=== PATIENT | male | born 2000 | race Two or more races ===

== ENCOUNTER 2020-03-02 23:43 | Day surgery (SDC) | payer OTHER ==
[~2020-03-02] VITALS: Ht 165.1 cm; Wt 95.2 kg
--- NOTE | 2020-03-03 00:23 | NUR ---
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
[2020-03-03] MEDS ORDERED: SODIUM CHLORIDE 0.9% 1,000ML IVBOLUS ONE (00:30)
[2020-03-03] MEDS ORDERED: ONDANSETRON 2MG/ML, 2ML IVPush ONE (00:30)
[2020-03-03] MEDS ORDERED: ONDANSETRON 2MG/ML, 2ML ONE ×2 (00:38→08:14)
[2020-03-03] MEDS ORDERED: MORPHINE SULFATE 4 MG/ML, 1ML ONE ×4 (00:38→04:21)
[2020-03-03 00:46] LABS: BASOPHILS % (AUTO) 1 % (0-1); EOSINOPHILS % (AUTO) 2 % (1-7); LYMPHOCYTES % (AUTO) 19 % (22-44); MEAN CORPUSCULAR HEMOGLOBIN 28.4 pg (27.5-34.5); MEAN CORPUSCULAR HGB CONC 33.9 g/dL (33.2-36.2); MEAN PLATELET VOLUME 8.4 fL (7.4-10.4); MONOCYTES % (AUTO) 6 % (2-9); NEUTROPHILS % (AUTO) 74 % (42-75); PLATELET COUNT 312 x10^3/uL (130-400); RED BLOOD COUNT 5.77 x10^6/uL (4.38-5.82); RED CELL DISTRIBUTION WIDTH 13.6 % (9.4-14.8)
[2020-03-03 00:51] LABS: ALANINE AMINOTRANSFERASE 78 U/L (12-78); ALBUMIN 4.2 g/dL (3.4-5.0); ANION GAP 5 mmol/L (5-15); CALCIUM 9.5 mg/dL (8.5-10.1); CHLORIDE 109 mmol/L (98-107); CREATININE 1.07 mg/dL (0.7-1.3)
[2020-03-03 00:53] LABS: ALKALINE PHOSPHATASE 116 U/L (45-117); BILIRUBIN,TOTAL 0.4 mg/dL (0.2-1.0)
[2020-03-03] MEDS: MORPHINE SULFATE 4 MG/ML, 1ML IVPush PRN ×2 (00:57→01:09)
--- NOTE | 2020-03-03 00:57 | NUR ---
PIV STARTED PT MEDICATED PER MAR
[2020-03-03 01:19] LABS: MD SCAN
--- NOTE | 2020-03-03 01:24 | NUR ---
pt to ct via stretcher at this time.
[2020-03-03] MEDS ORDERED: DIPHENHYDRAMINE 50 MG/ML, 1ML ONE (01:26)
[2020-03-03] MEDS ORDERED: DIPHENHYDRAMINE 50 MG/ML, 1ML IVPush ONE (01:30)
--- NOTE | 2020-03-03 02:08 | NUR ---
PT MEDICATED FOR PAIN PER DR MARTELL
--- NOTE | 2020-03-03 02:21 | NUR ---
PT INFORMED OF NEED FOR URINE AT THIS TIME STS CAN'T PEE YET
[2020-03-03] MEDS ORDERED: CEFOTETAN PMX 2GM/50ML 50 ML IVPB ONE (02:30)
[2020-03-03] MEDS ORDERED: PIPERACILLIN/TAZO/PMX 3.375GM 50 ML IV ONE (02:30)
[2020-03-03] MEDS ORDERED: morphine SULFATE 10 MG/ML, 1ML IV ONE (02:30)
--- NOTE | 2020-03-03 02:56 | NUR ---
AWAITING CULTURES TO BE DRAWN PRIOR TO ABX PER DR ARREAGA
--- NOTE | 2020-03-03 03:16 | NUR ---
NATE HAYS WALKED TO LAB AT THIS TIME
--- NOTE | 2020-03-03 03:32 | NUR ---
LAB AT BEDSIDE FOR CULTURES AT THIS TIME
--- NOTE | 2020-03-03 03:40 | NUR ---
ABX STARTED AT THIS TIME
[2020-03-03] MEDS ORDERED: OMNIPAQUE 350 MG/ML, 100ML BOTTLE ONE (03:58)
[2020-03-03] MEDS ORDERED: MORPHINE SULFATE 4 MG/ML, 1ML IVPush PRN (04:00)
[2020-03-03] MEDS ORDERED: SODIUM CHLORIDE FLUSH 10ML SYR IVF PRN (04:00)
[2020-03-03] MEDS ORDERED: SODIUM CHLORIDE 0.9% 1,000 ML IV ONE (04:00)
--- NOTE | 2020-03-03 04:29 | NUR ---
PT MEDICATED PER MAR FOR PAIN AT THIS TIME
--- NOTE | 2020-03-03 05:44 | NUR ---
pt resting on gurney friend remains at bedside
[2020-03-03 07:17] VITALS: BP 104/82
--- NOTE | 2020-03-03 07:18 | NUR ---
report from valorie sexton. report to OR nurse. pt last ate 2 pm yest. getting undressed. vss. to OR in 15 min. aware. as
[2020-03-03] MEDS ORDERED: EPINEPHRINE 1 MG/ML, 1ML ONE (07:22)
[2020-03-03] MEDS ORDERED: FENTANYL PF 100 MCG/2ML ONE ×3 (07:22→09:00)
[2020-03-03] MEDS ORDERED: BUPIVACAINE/PF 0.5% ONE (07:22)
[2020-03-03] MEDS ORDERED: MIDAZOLAM 1 MG/ML, 2ML ONE (07:22)
[2020-03-03] MEDS ORDERED: SUCCINYLCHOLINE 20 MG/ML, 10ML ONE (08:14)
[2020-03-03] MEDS ORDERED: DEXAMETHASONE 4 MG/ML, 1ML ONE (08:14)
[2020-03-03] MEDS ORDERED: ROCURONIUM 10MG/ML,5ML ONE (08:14)
[2020-03-03] MEDS ORDERED: NEOSTIGMINE 1 MG/ML, 10ML ONE (08:14)
[2020-03-03] MEDS ORDERED: PROPOFOL 10 MG/ML, 20ML ONE (08:14)
[2020-03-03] MEDS ORDERED: GLYCOPYRROLATE 0.2MG/1ML, 5ML ONE (08:14)
[2020-03-03] MEDS ORDERED: SUGAMMADEX 200 MG/2 ML IVPush ONE (08:14)
[2020-03-03] MEDS ORDERED: CEFAZOLIN 1,000 MG ONE (08:14)
[2020-03-03] MEDS ORDERED: KETOROLAC 30 MG/1 ML IV PRN (08:30)
[2020-03-03] MEDS ORDERED: HYDROmorphone 2 MG/ML, 1ML IVPush PRN (08:30)
[2020-03-03] MEDS ORDERED: LABETALOL 5MG/ML, 20ML IV PRN (08:30)
[2020-03-03] MEDS ORDERED: MEPERIDINE/PF 25MG/0.5ML IVPush PRN (08:30)
[2020-03-03] MEDS ORDERED: ACETAMINOPHEN 325 MG TABLET PO PRN (08:30)
[2020-03-03] MEDS ORDERED: hydrALAzine 20 MG/ML, 1ML IV PRN (08:30)
[2020-03-03] MEDS ORDERED: PROMETHAZINE 25 MG/ML, 1ML IV PRN (08:30)
[2020-03-03] MEDS ORDERED: ALBUTEROL SULFATE 2.5 MG/3 ML NPPB PRN (08:30)
[2020-03-03] MEDS: FENTANYL PF 100 MCG/2ML IV PRN ×5 (08:40→09:34)
[2020-03-03] MEDS ORDERED: OXYcodone 5 MG/5 ML ORAL.SOL UDC ONE ×2 (08:47→12:42)
[2020-03-03] MEDS: OXYcodone 5 MG/5 ML ORAL.SOL UDC PO PRN ×2 (09:00→12:43)
[2020-03-03] MEDS ORDERED: DIAZEPAM 5 MG/ML, 2ML ONE (09:00)
[2020-03-03] MEDS: DIAZEPAM 5 MG/ML, 2ML IVPush PRN ×2 (09:07→09:30)
[2020-03-03] MEDS ORDERED: OXYC5TAB3 PO (12:01)
[2020-03-03] MEDS ORDERED: ACET-2065 PO (12:02)
[2020-03-03] MEDS ORDERED: IBUP-1222 PO (12:04)
[2020-03-03] MEDS ORDERED: DOCU-131 PO (12:05)
== END 2020-03-03 13:20 | disposition home or self-care (01) ==
LOC: ED 03-03 02:32 → EDIP 03-03 02:55 → UNDOADMIN 03-03 02:55 → OUT 03-03 03:20 → DCLOUNGE 03-03 13:05 → EDIP 03-03 13:05 → UNDODISIN 03-03 13:20 → OUT 03-03 13:20
PROVIDERS: ATTEND Student in an Organized Health Care Education/Training Program
DX: K35.30 Acute appendicitis with localized peritonitis, without perforation or gangrene (principal); Z20.828 Contact with and (suspected) exposure to other viral communicable diseases; J45.909 Unspecified asthma, uncomplicated; Z79.899 Other long term (current) drug therapy; Z90.49 Acquired absence of other specified parts of digestive tract; Z91.013 Allergy to seafood
CPT/HCPCS: 36415; 44970; 74177; 80053; 83690; 85025; 87040; 87635; 88304; 93005; 96361; 96365; 96375; 96376; 99285; J0171; J0330; J0690; J1100; J2250; J2270; J2405; J2704; J2710; J3010; J3360; J7030; Q9967